=== PATIENT | male | born 1945 | race Two or more races ===

== ENCOUNTER 2022-07-30 12:15 | Inpatient (IN) | payer OTHER ==
[~2022-07-30] VITALS: Ht 188 cm; Wt 93.0 kg
[2022-07-30] MEDS ORDERED: ZIAC 5-6.25 MG1 EACH PO (14:07)
[2022-07-30] MEDS ORDERED: ATACAND32 MG PO (14:07)
[2022-08-05] MEDS ORDERED: ROSUVASTATIN CAL5 MG (15:39)
[2022-08-05] MEDS ORDERED: FINASTERIDE5 MG (15:39)
[2022-08-05] MEDS ORDERED: TAMSULOSIN HCL0.4 MG (15:39)
[2022-08-05] MEDS ORDERED: BISOPROLOL FUMAR5 MG (15:39)
[2022-08-05] MEDS ORDERED: HYDROCHLOROTHIA25 MG (15:39)
[2022-08-08] MEDS ORDERED: HYOSCYAMINE0.125 M1 SL (10:42)
[2022-08-08] MEDS ORDERED: ULTRACET PO (10:43)
== END 2022-08-08 12:39 | disposition home or self-care (01) | DRG 331 ==
LOC: SURH 08-01 12:15 → O/R 08-05 05:25 → SURH 08-05 05:25
PROVIDERS: ADMIT Surgery; ATTEND Surgery
PROC: 0DBL3ZZ Excision of Transverse Colon, Percutaneous Approach (ICD-10-PCS; 2022-08-05)
PROC: 0DTF4ZZ Resection of Right Large Intestine, Percutaneous Endoscopic Approach (ICD-10-PCS; principal; 2022-08-05 07:00)
DX: D12.2 Benign neoplasm of ascending colon (principal); R19.4 Change in bowel habit; R19.5 Other fecal abnormalities; Z20.822 Contact with and (suspected) exposure to COVID-19

== ENCOUNTER 2023-11-12 18:51 | Outpatient (CLI) | payer OTHER ==
[~2023-11-12 18:51] MED LIST: ATACAND32 MG PO; BISOPROLOL FUMAR5 MG; FINASTERIDE5 MG; HYDROCHLOROTHIA25 MG; HYOSCYAMINE0.125 M1 SL; ROSUVASTATIN CAL5 MG; TAMSULOSIN HCL0.4 MG; ULTRACET PO; ZIAC 5-6.25 MG1 EACH PO
== END 2023-11-12 23:00 | disposition home or self-care (01) ==
LOC: LAB 18:51
PROVIDERS: ATTEND Urology
DX: R97.20 Elevated prostate specific antigen [PSA] (principal)